=== PATIENT | female | born 1975 | race African-American/Black ===

== ENCOUNTER 2017-10-03 12:51 | Inpatient (IN) | payer OTHER ==
[2017-10-03 15:28] VITALS: BMI 20.5
--- NOTE | 2017-10-03 17:53 | HP ---
CIWA Score - CIWA Score Nausea/Vomitin Muscle Tremors: 3 Anxiety: 3 Agitation: 3 Paroxysmal Sweats: 3 Orientation: 0-Oriented Tacttile Disturbances: 1-Very Mild Itch/Numbness Auditory Disturbances: 0-None Visual Disturbances: 0-None Headache: 2-Mild CIWA-Ar Total Score: 18 Admission [facility] Chief Complaint: benzodiazepine withdrawal sx Allergies/Adverse Reactions: Allergies Allergy/AdvReac Type Severity Reaction Status Date / Time No Known Allergies Allergy Verified 10/03/17 17:15 History of Present Illness: 42 yo f with h/o opioid use disorder on [facility] MMTP 40mg daily , LDM today here for d3etox from benzodiazepines 3-4 pills daily last used this AM. also smlkes crack cocaoien daily. PM<HX asthma, depression, suicide attempts x3 in past,no suicidal ideation at this time., no h/o seiuzres no DTs. no alcohol use reproted. nioctine dependen5/day Exam Limitations: No Limitations - Ebola screening Have you traveled outside of the country in the last 21 days: No Have you had contact with anyone from an Ebola affected area: No Have you been sick,other than usual withdrawal symptoms: No Do you have a fever: No - Review of Systems Constitutional: Chills, Diaphoresis, Changes in sleep, Weakness, Unintentional Wgt. Loss EENT: reports: No Symptoms Reported Respiratory: reports: Cough, SOB with Exertion, Wheezing (asthma) Cardiac: reports: Palpitations (realted to drug use) GI: reports: Diarrhea, Nausea, Poor Appetite, Poor Fluid Intake, Indigestion, Abdominal cramping : reports: No Symptoms Reported Musculoskeletal: reports: Back Pain (chronic low back pain) Integumentary: reports: Flushing, Sweating Neuro: reports: Headache, Numbness, Paresthesia, Tingling, Tremors, Weakness Endocrine: reports: No Symptoms Reported Hematology: reports: No Symptoms Reported Psychiatric: reports: Judgement Intact, Mood/Affect Appropiate, Orientated x3, Anxious, Depressed Other Systems: Reviewed and Negative Patient History - Patient Medical History Hx Anemia: Yes (heavy periods) Hx Asthma: Yes Hx Chronic Obstructive Pulmonary Disease (COPD): No Hx Cancer: No Hx Cardiac Disorders: No Hx Congestive Heart Failure: No Hx Hypertension: No Hx Hypercholesterolemia: No Hx Pacemaker: No HX Cerebrovascular Accident: No Hx Seizures: No Hx Dementia: No Hx Diabetes: No Hx Gastrointestinal Disorders: No Hx Liver Disease: No Hx Genitourinary Disorders: No Hx Sexually Transmitted Disorders: No Hx Renal Disease (ESRD): No Hx Thyroid Disease: No Hx Hepatitis C: No Hx Depression: Yes (suicide atempts x3 , no si at thsi time) Hx Suicide Attempt: No Hx Bipolar Disorder: Yes Hx Schizophrenia: No - Patient Surgical History Past Surgical History: Yes Hx Neurologic Surgery: No Hx Cataract Extraction: No Hx Cardiac Surgery: No Hx Lung Surgery: No Hx Breast Surgery: No Hx Breast Biopsy: No Hx Abdominal Surgery: No Hx Appendectomy: No Hx Cholecystectomy: No Hx Genitourinary Surgery: No Hx Section: No Hx Orthopedic Surgery: No Other Surgical History: LEFT HAND CYST Anesthesia Reaction: No - PPD History Previous Implant?: Yes Documented Results: Negative w/o proof PPD to be Administered?: Yes - Reproductive History Patient is a Female of Child Bearing Age (11 -55 yrs old): Yes Patient : No - Smoking Cessation Smoking history: Current every day smoker Have you smoked in the past 12 months: Yes Aproximately how many cigarettes per day: 4 Hx Chewing Tobacco Use: No Initiated information on smoking cessation: Yes 'Breaking Loose' booklet given: 10/03/17 - Substance & Tx. History Hx Alcohol Use: No Hx Substance Use: Yes Substance Use Type: Cocaine, Heroin, Opiates, Prescribed, Tranquilizers Hx Substance Use Treatment: Yes ( [facility]) - Substances Abused Alprazolam (Xanax) Route: Oral Frequency: Daily Amount used: 10 mg Age of first use: 15 Date of Last Use: 10/03/17 Crack Route: Smoking Frequency: Daily Amount used: 8 bags Age of first use: 15 Date of Last Use: 10/03/17 Family Disease History - Family Disease History Family Disease History: Other: Grandparent (alcoholism), Mother (alcoho.ism) Admission Physical Exam [facility]HS - Vital Signs Vital Signs: Vital Signs - 24 hr 10/03/17 15:26 Temperature 97 F L Pulse Rate 71 Respiratory 20 Rate Blood Pressure 168/122 - Physical General Appearance: Yes: Nourished, Appropriately Dressed, Disheveled, Mild Distress, Thin, Tremorous, Irritable, Sweating, Anxious HEENTM: Yes: Within Normal Limits, EOMI, Hearing grossly Normal, Normal ENT Inspection, Normocephalic, Normal Voice, BG, Pharynx Normal, Hearing Decreased (left ear???) Respiratory: Yes: Within Normal Limits, Chest Non-Tender, Lungs Clear, Normal Breath Sounds, No Respiratory Distress, No Accessory Muscle Use Neck: Yes: Within Normal Limits, No masses,lesions,Nodules, Supple, Trachea in good position Breast: Yes: Breast Exam Deferred Cardiology: Yes: Within Normal Limits, Regular Rhythm, Regular Rate, S1, S2 Abdominal: Yes: Normal Bowel Sounds, Non Tender, Flat, Soft, Increased Bowel Sounds Genitourinary: Yes: Within Normal Limits Back: Yes: Normal Inspection, Decreased Range of Motion, Muscle Spasm, Vertebral Tenderness Musculoskeletal: Yes: full range of Motion, Gait Steady, Pelvis Stable, Back pain, Joint Stiffness, Muscle Pain Extremities: Yes: Normal Capillary Refill, Normal Range of Motion, Non-Tender, Tremors, Other Neurological: Yes: riprap man II-XII NML intact, Alert, Motor Strength 5/5, Normal Response, Depressed Affect Integumentary: Yes: Diaphoresis, Moist Lymphatic: Yes: Within Normal Limits - Addiitonal Findings: withdrawal sx noted - Diagnostic (1) Opioid dependence on agonist therapy Current Visit: Yes Status: Acute (2) Sedative, hypnotic or anxiolytic dependence with withdrawal, uncomplicated Current Visit: Yes Status: Acute (3) Asthma Current Visit: Yes Status: Acute (4) Nicotine dependence Current Visit: Yes Status: Acute (5) Depression Current Visit: Yes Status: Acute Cleared for Admission [facility] - Detox or Rehab [facility] Level of Care: Medically Managed Detox Regimen/Protocol: Valium [facility] Breath Alcohol Content Breath Alcohol Content: 0 Urine Pregancy Test - Result Urine Test Results: Negative- NO Line Present Urine Drug Screen - Results Drug Screen Negative: No Urine Drug Screen Results: BZO-Benzodiazepines
[2017-10-03] MEDS ORDERED: IBUPROFEN 400 MG TABLET (FP) PO PRN (17:56)
[2017-10-03] MEDS ORDERED: diazePAM 5 MG TABLET PO PRN (17:56)
[2017-10-03] MEDS ORDERED: hydrOXYzine PAMOATE 50 MG CAPSULE (FP) PO PRN (17:56)
[2017-10-03] MEDS ORDERED: NICOTINE POLACRILEX 2 MG GUM BC PRN (17:56)
[2017-10-03] MEDS ORDERED: P-EPHED 60MG/TRIPROLIDI 2.5MG TABLET PO PRN (17:56)
[2017-10-03] MEDS ORDERED: guaiFENesin/D-METHORPHAN HB 10 ML UNIT-DOSE CUPS PO PRN (17:56)
[2017-10-03] MEDS ORDERED: ACETAMINOPHEN 325 MG TABLET (FP) PO PRN (17:56)
[2017-10-03] MEDS ORDERED: MAG HYDROX/AL HYDROX/SIMETH 30 ML UNIT-DOSE CUP PO PRN (17:56)
[2017-10-03] MEDS ORDERED: MENTHOL/PHENOL 1 EACH UD MM PRN (17:56)
[2017-10-03] MEDS ORDERED: LOPERAMIDE HCL 2 MG CAPSULE PO PRN (17:56)
[2017-10-03] MEDS ORDERED: diazePAM 5 MG TABLET PO ONE (17:56)
[2017-10-03] MEDS ORDERED: MAGNESIUM HYDROX 2400MG/30ML ORAL SUSPENSION 30 ML CUP PO PRN (17:56)
[2017-10-03] MEDS ORDERED: MAGNESIUM CITRATE 300 ML BOTTLE PO PRN (17:56)
[2017-10-03] MEDS ORDERED: ONDANSETRON *ODT* 4 MG TABLET SL ONE (18:00)
[2017-10-03] MEDS: PANTOPRAZOLE 40 MG TABLET (FP) PO SCH (20:41)
[2017-10-03] MEDS: ALBUTEROL SO4 18 GM HFA INHALER IH SCH (20:46)
[2017-10-03] MEDS: NICOTINE 14 MG/24 HOURS TOPICAL PATCH TD SCH (21:23)
[2017-10-03] MEDS: NAPROXEN 500 MG TABLET (FP) PO SCH ×2 (23:08→23:21)
[2017-10-03] MEDS: diazePAM 5 MG TABLET PO SCH ×2 (23:08→23:17)
[2017-10-03] MEDS: THIAMINE HCL 100 MG TABLET (FP) PO SCH ×2 (23:09→23:22)
[2017-10-04 02:56] LABS: URINE APPEARANCE SLCLOUDY; URINE BILIRUBIN NEGATIVE (NEGATIVE); URINE BLOOD 3+ (NEGATIVE); URINE COLOR YELLOW; URINE GLUCOSE (UA) 1+ (NEGATIVE); URINE KETONE NEGATIVE (NEGATIVE); URINE NITRITE NEGATIVE (NEGATIVE); URINE UROBILINOGEN NEGATIVE mg/dL (0.2-1.0)
[2017-10-04 03:07] LABS: URINE PROTEIN 1+ (NEGATIVE)
[2017-10-04 03:26] LABS: URINE BACTERIA RARE /hpf (NONE SEEN); URINE MUCUS RARE; URINE RBC 500 /hpf (0-3); URINE WBC 9 /hpf (3-5)
[2017-10-04] MEDS: diazePAM 5 MG TABLET PO SCH ×3 (05:59→22:37)
[2017-10-04] MEDS: ALBUTEROL SO4 18 GM HFA INHALER IH SCH ×4 (05:59→23:14)
[2017-10-04 09:54] LABS: MCH 29.2 pg (25.7-33.7); MEAN CELL VOLUME 88.5 fl (80-96); PLATELET COUNT 334 K/MM3 (134-434); RDW 15.1 % (11.6-15.6); WHITE BLOOD COUNT 6.2 K/mm3 (4.0-10.0)
[2017-10-04 10:00] LABS: ALBUMIN 2.7 g/dl (3.4-5.0); ANION GAP 4 (8-16); CALCIUM 8.1 mg/dL (8.5-10.1); CO2 30 mmol/L (21-32); CREATININE 1.1 mg/dL (0.55-1.02); GLUCOSE,RANDOM 69 mg/dL (74-106); SGOT/AST 14 U/L (15-37)
[2017-10-04 10:14] LABS: ALK PHOS 81 U/L (45-117); BILIRUBIN,TOTAL 0.6 mg/dL (0.2-1.0); SGPT/ALT 27 U/L (12-78); TOT PROT 5.7 g/dl (6.4-8.2)
--- NOTE | 2017-10-04 10:14 | EKG ---
Test Reason : Blood Pressure : / mmHG Vent. Rate : 075 BPM Atrial Rate : 075 BPM P-R Int : 160 ms QRS Dur : 090 ms QT Int : 380 ms P-R-T Axes : 069 -28 027 degrees QTc Int : 424 ms NORMAL SINUS RHYTHM NONSPECIFIC ST ABNORMALITY NO PREVIOUS ECGS AVAILABLE Confirmed by MARTHA KRUGER MD ([id number]) on 10/04/2017 10:14:17 AM Referred By: Confirmed By:MARTHA KRUGER MD
[2017-10-04 10:15] LABS: URINE LEUK ESTERASE Negative (NEGATIVE)
--- NOTE | 2017-10-04 10:16 | PN ---
S CIWA - CIWA Score Nausea/Vomitin-No Nausea/No Vomiting Muscle Tremors: 4-Moderate,w/Arms Extend Anxiety: 3 Agitation: 3 Paroxysmal Sweats: 3 Orientation: 0-Oriented Tacttile Disturbances: 1-Very Mild Itch/Numbness Auditory Disturbances: 0-None Visual Disturbances: 0-None Headache: 0-None Present CIWA-Ar Total Score: 14 BHS Progress Note (SOAP) Subjective: Anxiety,tremors,sweating,interrupted sleep,restless Objective: 10/04/17 10:15 Vital Signs - 8 hr 10/04/17 10/04/17 10/04/17 04:18 06:30 09:53 Temperature 96.1 F L 97.9 F Pulse Rate 76 82 Respiratory 18 18 18 Rate Blood Pressure 148/90 158/62 Laboratory Tests 10/04/17 10/04/17 10/04/17 00:00 07:00 07:00 WBC 6.2 RBC 4.18 Hgb 12.2 Hct 37.0 MCV 88.5 MCH 29.2 MCHC 33.0 RDW 15.1 Plt Count 334 MPV 8.0 Sodium 142 Potassium 4.1 Chloride 108 H Carbon Dioxide 30 Anion Gap 4 L BUN 15 Creatinine 1.1 H Creat Clearance w eGFR 55.01 Random Glucose 69 L Calcium 8.1 L AST 14 L Albumin 2.7 L Urine Color Yellow Urine Appearance Slcloudy Urine pH 8.0 Ur Specific [place] 1.012 Urine Protein 1+ H Urine Glucose (UA) 1+ H Urine Ketones Negative Urine Blood 3+ H Urine Nitrite Negative Urine Bilirubin Negative Urine Urobilinogen Negative Urine WBC (Auto) 9 Urine RBC (Auto) 500 Ur Epithelial Cells Rare Urine Bacteria Rare Urine Mucus Rare labs noted Assessment: 10/04/17 10:16 Withdrawal sx. Plan: Continue detox
[2017-10-04] MEDS: METHADONE HCL 10 MG TABLET PO SCH (12:03)
[2017-10-04] MEDS: NAPROXEN 500 MG TABLET (FP) PO SCH ×2 (12:03→22:35)
[2017-10-04] MEDS: PRENATAL VITAMINS W/ FOLIC ACID TABLET (FP) PO SCH (12:04)
[2017-10-04] MEDS: PANTOPRAZOLE 40 MG TABLET (FP) PO SCH (12:04)
[2017-10-04] MEDS: NICOTINE 14 MG/24 HOURS TOPICAL PATCH TD SCH (12:04)
--- NOTE | 2017-10-04 17:26 | CONSULT ---
[facility] Psychiatric Consult - Data Date of interview: 10/04/17 Admission source: [facility] Identifying data: First admission to [facility] for this 42 y/o AA female seeking detox treatment on for opioid,cocaine and xanax dependence.Patient is single without children,homeless,unemployed and supported on food stamps. Substance Abuse History: Confirmed by patient in this interview.See current [facility] report for details : Smoking history: Current every day smoker. Have you smoked in the past 12 months: Yes. Aproximately how many cigarettes per day: 4. Hx Chewing Tobacco Use: No. Initiated information on smoking cessation: Yes. 'Breaking Loose' booklet given: 10/03/17. - Substance & Tx. History. Hx Alcohol Use: No. Hx Substance Use: Yes. Substance Use Type: Cocaine, Heroin, Opiates, Prescribed, Tranquilizers. Hx Substance Use Treatment: Yes ([facility]). - Substances Abused. Alprazolam (Xanax). Route: Oral. Frequency: Daily. Amount used: 10 mg. Age of first use: 15. Date of Last Use: 10/03/17. Crack. Route: Smoking. Frequency: Daily. Amount used: 8 bags. Age of first use: 15. Date of Last Use: 10/03/17 Medical History: Anemia and bronchial asthma. Psychiatric History: Diagnosed with Bipolar Disorder.Prescribed seroquel 100 mg/ hs.Ms Merrill indicates that she gets psychiatric outpatient services at a program named [facility] in the [place].Patient admits to a history of multiple psychiatric hospitalizations.Known to [facility] and [facility].Reported history of three suicide attempts ( unclear means/vague report).Currently on methadone maintenance (30 mg/day). Physical/Sexual Abuse/Trauma History: No reported history of abuse. Additional Comment: Urine Drug Screen Results: BZO-Benzodiazepines.Noted. Mental Status Exam - Mental Status Exam Alert and Oriented to: Time, Place, Person Cognitive Function: Grossly Intact Patient Appearance: Disheveled Mood: Withdrawn, Hopeful, Euthymic Affect: Appropriate, Normal Range Patient Behavior: Appropriate, Cooperative Speech Pattern: Clear Voice Loudness: Normal Thought Process: Intact, Goal Oriented Thought Disorder: Not Present Hallucinations: Denies Suicidal Ideation: Denies Homicidal Ideation: Denies Insight/Judgement: Poor Sleep: Poorly, Difficulty falling asleep Appetite: Good Muscle strength/Tone: Normal Gait/Station: Normal Psychiatric Findings - Problem List ([place] 1, 2,3) (1) Opioid dependence on agonist therapy Current Visit: Yes Status: Acute (2) Sedative, hypnotic or anxiolytic dependence with withdrawal, uncomplicated Current Visit: Yes Status: Acute (3) Nicotine dependence Current Visit: Yes Status: Acute (4) Substance induced mood disorder Current Visit: Yes Status: Acute (5) Insomnia Current Visit: Yes Status: Acute - Initial Treatment Plan Initial Treatment Plan: Psychoeducation.Detoxification in progress.Seroquel 100 mg po hs.Side effects/benefits are discussed with the patient.She agrees with this careplan.Observation.
[2017-10-04] MEDS: QUEtiapine FUMARATE 100 MG TABLET (FP) PO SCH (22:35)
[2017-10-04] MEDS: THIAMINE HCL 100 MG TABLET (FP) PO SCH (22:35)
[2017-10-05] MEDS: METHADONE HCL 10 MG TABLET PO SCH (06:08)
[2017-10-05] MEDS: ALBUTEROL SO4 18 GM HFA INHALER IH SCH ×4 (06:10→23:30)
[2017-10-05] MEDS: NAPROXEN 500 MG TABLET (FP) PO SCH ×2 (10:26→22:31)
[2017-10-05] MEDS: NICOTINE 14 MG/24 HOURS TOPICAL PATCH TD SCH (10:26)
[2017-10-05] MEDS: diazePAM 5 MG TABLET PO SCH ×2 (10:26→22:31)
[2017-10-05] MEDS: PRENATAL VITAMINS W/ FOLIC ACID TABLET (FP) PO SCH (10:26)
[2017-10-05] MEDS: PANTOPRAZOLE 40 MG TABLET (FP) PO SCH (10:27)
--- NOTE | 2017-10-05 13:02 | PN ---
S CIWA - CIWA Score Nausea/Vomitin-No Nausea/No Vomiting Muscle Tremors: 2 Anxiety: 3 Agitation: 2 Paroxysmal Sweats: 2 Orientation: 0-Oriented Tacttile Disturbances: 0-None Auditory Disturbances: 0-None Visual Disturbances: 0-None Headache: 0-None Present CIWA-Ar Total Score: 9 BHS Progress Note (SOAP) Subjective: sweating,anxiety,body aches Objective: 10/05/17 13:00 Vital Signs - 8 hr 10/05/17 10/05/17 06:00 10:00 Temperature 98.1 F 100.2 F H Pulse Rate 77 92 H Respiratory 18 20 Rate Blood Pressure 163/85 185/109 Laboratory Tests 10/04/17 10/04/17 10/04/17 00:00 07:00 07:00 WBC 6.2 RBC 4.18 Hgb 12.2 Hct 37.0 MCV 88.5 MCH 29.2 MCHC 33.0 RDW 15.1 Plt Count 334 MPV 8.0 Sodium 142 Potassium 4.1 Chloride 108 H Carbon Dioxide 30 Anion Gap 4 L BUN 15 Creatinine 1.1 H Creat Clearance w eGFR 55.01 Random Glucose 69 L Calcium 8.1 L Total Bilirubin 0.6 AST 14 L ALT 27 Alkaline Phosphatase 81 Total Protein 5.7 L Albumin 2.7 L Urine Color Yellow Urine Appearance Slcloudy Urine pH 8.0 Ur Specific [place] 1.012 Urine Protein 1+ H Urine Glucose (UA) 1+ H Urine Ketones Negative Urine Blood 3+ H Urine Nitrite Negative Urine Bilirubin Negative Urine Urobilinogen Negative Ur Leukocyte Esterase Negative Urine WBC (Auto) 9 Urine RBC (Auto) 500 Ur Epithelial Cells Rare Urine Bacteria Rare Urine Mucus Rare RPR Titer 10/04/17 07:00 WBC RBC Hgb Hct MCV MCH MCHC RDW Plt Count MPV Sodium Potassium Chloride Carbon Dioxide Anion Gap BUN Creatinine Creat Clearance w eGFR Random Glucose Calcium Total Bilirubin AST ALT Alkaline Phosphatase Total Protein Albumin Urine Color Urine Appearance Urine pH Ur Specific [place] Urine Protein Urine Glucose (UA) Urine Ketones Urine Blood Urine Nitrite Urine Bilirubin Urine Urobilinogen Ur Leukocyte Esterase Urine WBC (Auto) Urine RBC (Auto) Ur Epithelial Cells Urine Bacteria Urine Mucus RPR Titer Nonreactive labs noted, pt. has her menstruation Assessment: 10/05/17 13:01 Withdrawal sx. Plan: Continue detox
[2017-10-05] MEDS: THIAMINE HCL 100 MG TABLET (FP) PO SCH (22:31)
[2017-10-05] MEDS: QUEtiapine FUMARATE 100 MG TABLET (FP) PO SCH (22:31)
[2017-10-06] MEDS: METHADONE HCL 10 MG TABLET PO SCH (05:20)
[2017-10-06] MEDS: ALBUTEROL SO4 18 GM HFA INHALER IH SCH ×4 (05:22→23:37)
[2017-10-06] MEDS: cloNIDine HCL 0.1 MG TABLET PO PRN ×2 (07:47→22:41)
[2017-10-06] MEDS: PRENATAL VITAMINS W/ FOLIC ACID TABLET (FP) PO SCH (11:08)
[2017-10-06] MEDS: PANTOPRAZOLE 40 MG TABLET (FP) PO SCH (11:08)
[2017-10-06] MEDS: diazePAM 5 MG TABLET PO SCH ×2 (11:08→22:41)
[2017-10-06] MEDS: NAPROXEN 500 MG TABLET (FP) PO SCH ×2 (11:08→22:42)
[2017-10-06] MEDS: NICOTINE 14 MG/24 HOURS TOPICAL PATCH TD SCH (11:09)
[2017-10-06] MEDS: QUEtiapine FUMARATE 100 MG TABLET (FP) PO SCH (22:42)
[2017-10-06] MEDS: THIAMINE HCL 100 MG TABLET (FP) PO SCH (22:42)
[2017-10-07] MEDS: ALBUTEROL SO4 18 GM HFA INHALER IH SCH (06:00)
[2017-10-07] MEDS ORDERED: diazePAM 5 MG TABLET PO SCH (10:00)
[2017-10-07] MEDS: NAPROXEN 500 MG TABLET (FP) PO SCH (10:28)
[2017-10-07] MEDS: METHADONE HCL 10 MG TABLET PO SCH (10:28)
[2017-10-07] MEDS: NICOTINE 14 MG/24 HOURS TOPICAL PATCH TD SCH (10:28)
[2017-10-07] MEDS: PANTOPRAZOLE 40 MG TABLET (FP) PO SCH (10:28)
[2017-10-07] MEDS: PRENATAL VITAMINS W/ FOLIC ACID TABLET (FP) PO SCH (10:28)
--- NOTE | 2017-10-07 11:35 | DS ---
[facility] Detox Discharge Summary Admission Date: 10/03/17 Discharge Date: 10/07/17 - History Present History: Opioid Dependence, Sedative Dependence - Physical Exam Results Vital Signs: Vital Signs Temperature 99.1 F 10/07/17 09:32 Pulse Rate 95 H 10/07/17 09:32 Respiratory Rate 18 10/07/17 09:32 Blood Pressure 139/98 10/07/17 09:32 O2 Sat by Pulse Oximetry (%) - Treatment Hospital Course: Detox Protocol Followed, Detoxed Safely, Responded well, Discharged Condition Good, Rehab Referral Accepted - Medication Discharge Medications: Ambulatory Orders Albuterol Sulfate Inhaler - [Ventolin Hfa Inhaler -] 2 inh PO Q6H 10/03/17 Quetiapine Fumarate [Seroquel -] 100 mg PO HS 10/03/17 Quetiapine Fumarate [Seroquel] 100 mg PO HS #30 tablet 10/04/17 - Diagnosis (1) Asthma Current Visit: Yes Status: Chronic Qualifiers: Asthma severity: mild Asthma persistence: unspecified Asthma complication type: uncomplicated Qualified Code(s): J45.909 - Unspecified asthma, uncomplicated (2) Depression Current Visit: Yes Status: Acute (3) Insomnia Current Visit: Yes Status: Acute (4) Nicotine dependence Current Visit: Yes Status: Chronic Qualifiers: Nicotine product type: cigarettes Substance use status: uncomplicated Qualified Code(s): F17.210 - Nicotine dependence, cigarettes, uncomplicated (5) Opioid dependence on agonist therapy Current Visit: Yes Status: Acute (6) Sedative, hypnotic or anxiolytic dependence with withdrawal, uncomplicated Current Visit: Yes Status: Chronic (7) Substance induced mood disorder Current Visit: Yes Status: Acute - AMA Did Patient Leave Against Medical Advice: No (referred to [facility])
[2017-10-07 13:35] VITALS: BP 156/78; PULSE 92; TEMP 96.6
== END 2017-10-07 15:15 | disposition home or self-care (01) | DRG 773 ==
LOC: YASAS 12:51 → Y6N 18:16
PROVIDERS: ADMIT Internal Medicine; ATTEND Internal Medicine
PROC: HZ2ZZZZ Detoxification Services for Substance Abuse Treatment (ICD-10-PCS; principal; 2017-10-03)
DX: F11.20 Opioid dependence, uncomplicated (principal); F13.230 Sedative, hypnotic or anxiolytic dependence with withdrawal, uncomplicated; F17.210 Nicotine dependence, cigarettes, uncomplicated; F32.9 Major depressive disorder, single episode, unspecified; F19.24 Other psychoactive substance dependence with psychoactive substance-induced mood disorder; G47.00 Insomnia, unspecified; J45.909 Unspecified asthma, uncomplicated
CPT/HCPCS: 36415; 80053; 81003; 81015; 85027; 86593; 93005; 93010